=== PATIENT | female | born 1975 | race Two or more races ===

== ENCOUNTER 2020-06-09 06:32 | Day surgery (SDC) | payer OTHER | END 2020-06-09 10:55 | disposition home or self-care (01) | LOC: AMB-ENDOS 06:32 | PROVIDERS: ATTEND Internal Medicine Gastroenterology | DX: D13.1 Benign neoplasm of stomach (principal); K44.9 Diaphragmatic hernia without obstruction or gangrene; Z20.822 Contact with and (suspected) exposure to COVID-19 ==

== ENCOUNTER 2023-09-17 08:37 | Emergency (ER) | payer OTHER ==
[~2023-09-17] VITALS: Ht 162.6 cm; Wt 62.6 kg
[2023-09-17] MEDS ORDERED: GABAPENTIN300 M2 PO (08:49)
[2023-09-17] MEDS ORDERED: TIZANIDINE HCL4 MG PO (08:49)
[2023-09-17] MEDS ORDERED: NURTEC ODT75 MG PO (08:50)
[2023-09-17] MEDS ORDERED: NORFLEX100MG PO (08:50)
[2023-09-17] MEDS ORDERED: DICLOFENAC SODI25 MG PO (08:51)
[2023-09-17] MEDS ORDERED: KETOROLAC TROMETHAMINE 30 MG VIAL ONE (09:25)
[2023-09-17] MEDS ORDERED: KETOROLAC TROMETHAMINE 15 MG VIAL IV ONE (09:30)
[2023-09-17 09:48] LABS: HEMOGLOBIN 13.2 g/dL (12.0-15.00); MEAN CELL VOLUME 85.3 fL (80.00-100.00); MEAN CORPUSCULAR HEMOGLOBIN 28.8 pg (27.00-32.0); MEAN CORPUSCULAR HGB CONC 33.8 g/dl (32.0-36.0); PLATELET COUNT 300 K/uL (150-450); RED BLOOD COUNT 4.57 M/uL (4.00-6.00); RED CELL DISTRIBUTION WIDTH 14.3 % (11.5-14.5)
[2023-09-17 10:21] LABS: ALBUMIN 3.7 gm/dL (3.4-5.0); BILIRUBIN TOTAL 0.51 mg/dL (0.3-1.2); CALCIUM 8.8 mg/dL (8.5-10.1); CREATININE SERUM 0.8 mg/dL (0.55-1.02); GFR 76.24; GLOBULINA 3.3 G/DL (2.4-3.5); POTASSIUM 3.91 mEq/L (3.5-5.1)
[2023-09-17 11:03] LABS: PH,URINE 7.5 (5.0-8.0); URINE APPEARANCE Clear; URINE BILIRRUBIN Negative (NEGATIVE); URINE BLOOD Negative; URINE COLOR Yellow; URINE GLUCOSE Negative (NEGATIVE); URINE LEUKOCYTE Negative; URINE NITRATE Negative; URINE PROTEIN Negative (NEGATIVE); URINE UROBILINOGEN 0.2 E.U./dl
[2023-09-17 11:07] LABS: URINE BACTERIA 32.6 uL (0.0-1933); URINE EPITHELIAL CELLS 2.1 uL (0.0-38.8); URINE RBC 8.2 uL (0.0-20.8); URINE WBC 2.9 uL (0.0-23.2)
== END 2023-09-17 14:20 | disposition home or self-care (01) ==
LOC: ER 08:37
PROVIDERS: General Practice
DX: R10.31 Right lower quadrant pain (principal); D25.9 Leiomyoma of uterus, unspecified; Z88.2 Allergy status to sulfonamides; Z88.8 Allergy status to other drugs, medicaments and biological substances
CPT/HCPCS: 36415; 74177; 76830; 96365; 99284; J1885; Q9965

== ENCOUNTER 2024-03-27 05:40 | Day surgery (SDC) | payer OTHER ==
[2024-03-23 10:54] LABS: HEMATOCRIT 37.6 % (36.0-45.00); HEMOGLOBIN 12.5 g/dL (12.0-15.00); MEAN CELL VOLUME 86.5 fL (80.00-100.00); MEAN CORPUSCULAR HEMOGLOBIN 28.7 pg (27.00-32.0); MEAN CORPUSCULAR HGB CONC 33.2 g/dl (32.0-36.0); PLATELET COUNT 298 K/uL (150-450); RED BLOOD COUNT 4.34 M/uL (4.00-6.00); RED CELL DISTRIBUTION WIDTH 14.4 % (11.5-14.5)
[2024-03-23 11:24] VITALS: BP 117/75
[2024-03-23 11:28] LABS: INR < 0.93; PARTIAL THROMBOPLASTIN TIME 31.4 SECONDS (22.0-34.0); PROTHROMBIN TIME 10.2 SECONDS (9.0-11.5)
[2024-03-23 12:26] LABS: BILIRUBIN TOTAL 0.62 mg/dL (0.3-1.2); CALCIUM 9.2 mg/dL (8.5-10.1); CREATININE SERUM 0.77 mg/dL (0.55-1.02); GFR 79.35; GLOBULINA 3.3 G/DL (2.4-3.5); POTASSIUM 4.1 mEq/L (3.5-5.1); TOTAL PROTEIN 7.3 gm/dL (6.4-8.2)
[~2024-03-27] VITALS: Ht 162.6 cm; Wt 66.2 kg
[~2024-03-27 05:40] MED LIST: DICLOFENAC SODI25 MG PO; GABAPENTIN300 M2 PO; NORFLEX100MG PO; NURTEC ODT75 MG PO; TIZANIDINE HCL4 MG PO; VISTARIL50 MG/ML PO
[2024-03-27] MEDS ORDERED: POVIDONE-IODINE 118 ML BOTT TOP ONE (07:25)
[2024-03-27] MEDS ORDERED: KETOROLAC TROMETHAMINE 30 MG VIAL IV ONE (08:30)
[2024-03-27] MEDS ORDERED: MORPHINE SULFATE 4 MG/ML VIAL IV ONE (08:45)
[2024-03-27] MEDS ORDERED: KETOROLAC TROMETHAMINE 30 MG VIAL ONE (09:07)
== END 2024-03-27 10:40 | disposition home or self-care (01) ==
LOC: CIR.AMB 05:40
PROVIDERS: ATTEND Student in an Organized Health Care Education/Training Program
DX: N95.0 Postmenopausal bleeding (principal); Z88.1 Allergy status to other antibiotic agents; Z88.2 Allergy status to sulfonamides; J44.9 Chronic obstructive pulmonary disease, unspecified; J32.9 Chronic sinusitis, unspecified; K21.9 Gastro-esophageal reflux disease without esophagitis

== ENCOUNTER 2024-04-13 08:00 | Day surgery (SDC) | payer OTHER ==
[2024-04-13] MEDS ORDERED: DIPHENHYDRAMINE HCL 50 MG/ML VIAL 1ML IV ONE (11:45)
[2024-04-13] MEDS ORDERED: fentaNYL CITRATE 50 MCG/ML AMPUL IV ONE (11:45)
[2024-04-13] MEDS ORDERED: MIDAZOLAM HCL 2 MG/2 ML VIAL IV ONE (11:45)
== END 2024-04-13 13:20 | disposition home or self-care (01) ==
LOC: AMB-ENDOS 08:00
PROVIDERS: ATTEND Surgery
DX: D12.5 Benign neoplasm of sigmoid colon (principal); K62.5 Hemorrhage of anus and rectum; K62.89 Other specified diseases of anus and rectum; R19.4 Change in bowel habit; Z88.6 Allergy status to analgesic agent; Z88.2 Allergy status to sulfonamides

== ENCOUNTER 2024-04-16 08:00 | Emergency (ER) | payer OTHER ==
[~2024-04-16] VITALS: Ht 162.6 cm; Wt 63.5 kg
[2024-04-16] MEDS ORDERED: 0.9 % SODIUM CHLORIDE 1,000 ML IV STA (08:35)
[2024-04-16 09:15] LABS: URINE APPEARANCE Clear; URINE BILIRRUBIN Negative (NEGATIVE); URINE BLOOD Large; URINE COLOR Yellow; URINE GLUCOSE Negative (NEGATIVE); URINE KETONE Negative (NEGATIVE); URINE LEUKOCYTE Trace; URINE NITRATE Negative; URINE PROTEIN Negative (NEGATIVE); URINE UROBILINOGEN 0.2 E.U./dl
[2024-04-16 09:20] LABS: URINE BACTERIA 6214.2 uL (0.0-1933); URINE EPITHELIAL CELLS 34.1 uL (0.0-38.8); URINE RBC 32.5 uL (0.0-20.8); URINE WBC 43.2 uL (0.0-23.2)
[2024-04-16 09:40] LABS: HEMATOCRIT 37.5 % (36.0-45.00); HEMOGLOBIN 12.7 g/dL (12.0-15.00); MEAN CELL VOLUME 86.2 fL (80.00-100.00); MEAN CORPUSCULAR HEMOGLOBIN 29.1 pg (27.00-32.0); MEAN CORPUSCULAR HGB CONC 33.8 g/dl (32.0-36.0); PLATELET COUNT 299 K/uL (150-450); RED BLOOD COUNT 4.35 M/uL (4.00-6.00); RED CELL DISTRIBUTION WIDTH 14.6 % (11.5-14.5)
[2024-04-16 11:03] LABS: CREATININE SERUM 0.62 mg/dL (0.55-1.02); GFR 101.89; POTASSIUM 4.22 mEq/L (3.5-5.1)
== END 2024-04-16 14:16 | disposition home or self-care (01) ==
LOC: ER 08:03
PROVIDERS: Emergency Medicine
DX: N93.8 Other specified abnormal uterine and vaginal bleeding (principal); N80.8 Other endometriosis; Z88.2 Allergy status to sulfonamides; Z88.8 Allergy status to other drugs, medicaments and biological substances
CPT/HCPCS: 36415; 96365; 96366; 99282; J7030

== ENCOUNTER 2024-08-17 07:15 | Inpatient (IN) | payer OTHER ==
[~2024-08-17] VITALS: Ht 162.6 cm; Wt 66.2 kg
[2024-08-17 11:39] VITALS: BP 123/87
[2024-08-17] MEDS ORDERED: MAXALT10 MG (11:44)
[2024-08-17] MEDS ORDERED: CATAFLAM (11:45)
[2024-08-17] MEDS ORDERED: TORADOL (11:46)
[2024-08-17] MEDS ORDERED: NORFLEX (11:46)
[2024-08-17] MEDS ORDERED: TRAMADOL (11:46)
[2024-08-17] MEDS ORDERED: PLAQUENIL (11:47)
[2024-08-17 12:15] LABS: BASO % 1.2 % (0.1-1.2); EOS # 0.05 (0.04-0.54); EOS % 0.4 % (0.7-7.0); LYMPH # 2.78 (1.18-3.74); LYMPH % 24.1 % (19.3-53.1); MEAN PLATELET VOLUME 8.70 fl (9.4-12.4); MONO # 0.50 (0.24-0.82); MONO % 4.3 % (4.7-12.5); NEUT # 8.02 (1.56-6.13); NEUT % 69.7 % (34.0-71.1); RED CELL DISTRIBUTION WIDTH 14.8 % (11.6-14.4)
[2024-08-17 12:33] LABS: INR 0.95
[2024-08-17 13:24] LABS: RH POSITIVE
[2024-08-21] MEDS ORDERED: CEFAZOLIN SODIUM 1,000 MG VIAL IV ONE (12:45)
[2024-08-21] MEDS ORDERED: METRONIDAZOLE/SODIUM CHLORIDE 500 MG/100 ML PIGGYBACK IV ONE (12:45)
[2024-08-21] MEDS ORDERED: HEPARIN SODIUM,PORCINE 5,000 UNITS/ML VIAL SUBCUTANEO ONE (12:45)
[2024-08-21] MEDS ORDERED: POVIDONE-IODINE 118 ML BOTT TOP ONE (12:45)
[2024-08-21] MEDS ORDERED: RINGERS SOLUTION,LACTATED 1,000 ML IV SCH (15:00)
[2024-08-21] MEDS ORDERED: MORPHINE SULFATE 4 MG/ML VIAL IV ONE (15:05)
[2024-08-21] MEDS ORDERED: SUGAMMADEX SODIUM 200 MG/2 ML VIAL IV ONE (15:15)
[2024-08-21] MEDS ORDERED: VISTASEAL DUAL APPICATOR 1 EACH APPL TOP ONE (15:15)
[2024-08-21] MEDS ORDERED: THROMBIN,HU/FIBRINOGEN/CALCIUM 10 ML SYRINGE TOP ONE (15:15)
[2024-08-21] MEDS ORDERED: GABAPENTIN 300 MG CAPSULE PO SCH (17:00)
[2024-08-21 17:36] VITALS: BP 114/69
[2024-08-21] MEDS ORDERED: KETOROLAC TROMETHAMINE 30 MG VIAL IV SCH (18:00)
[2024-08-21] MEDS ORDERED: ACETAMINOPHEN 500 MG GEL..CAP PO SCH (18:00)
[2024-08-21] MEDS ORDERED: ONDANSETRON HCL 2 MG/ML VIAL IV PRN (21:15)
[2024-08-21 23:44] VITALS: BP 96/61
[2024-08-22 04:00] VITALS: BP 103/67
[2024-08-22 06:42] LABS: BASO % 0.8 % (0.1-1.2); EOS # 0.09 (0.04-0.54); EOS % 0.8 % (0.7-7.0); LYMPH # 3.41 (1.18-3.74); LYMPH % 28.7 % (19.3-53.1); MEAN PLATELET VOLUME 9.20 fl (9.4-12.4); MONO # 0.38 (0.24-0.82); MONO % 3.2 % (4.7-12.5); NEUT # 7.86 (1.56-6.13); NEUT % 66.2 % (34.0-71.1); RED CELL DISTRIBUTION WIDTH 14.6 % (11.6-14.4)
[2024-08-22 08:27] VITALS: BP 111/71
== END 2024-08-22 14:20 | disposition home or self-care (01) | DRG 743 ==
LOC: O/R 08-21 06:00 → OB/GYN 08-21 07:15
PROVIDERS: ADMIT Student in an Organized Health Care Education/Training Program; ATTEND Student in an Organized Health Care Education/Training Program
PROC: 0UT64ZZ Resection of Left Fallopian Tube, Percutaneous Endoscopic Approach (ICD-10-PCS; 2024-08-21)
PROC: 0UT14ZZ Resection of Left Ovary, Percutaneous Endoscopic Approach (ICD-10-PCS; 2024-08-21)
PROC: 0TNB4ZZ Release Bladder, Percutaneous Endoscopic Approach (ICD-10-PCS; 2024-08-21)
PROC: 8E0W4CZ Robotic Assisted Procedure of Trunk Region, Percutaneous Endoscopic Approach (ICD-10-PCS; 2024-08-21)
PROC: 0TJB8ZZ Inspection of Bladder, Via Natural or Artificial Opening Endoscopic (ICD-10-PCS; 2024-08-21)
PROC: 0UT94ZZ Resection of Uterus, Percutaneous Endoscopic Approach (ICD-10-PCS; principal; 2024-08-21 17:00)
DX: D25.1 Intramural leiomyoma of uterus (principal); N80.03 Adenomyosis of the uterus; R10.2 Pelvic and perineal pain; N95.0 Postmenopausal bleeding; Z90.710 Acquired absence of both cervix and uterus
CPT/HCPCS: 58571; 52000; S2900

== ENCOUNTER 2024-09-27 08:00 | Day surgery (SDC) | payer OTHER ==
[~2024-09-27 08:00] MED LIST changes: +CATAFLAM; +MAXALT10 MG; +NORFLEX; +PLAQUENIL; +TORADOL; +TRAMADOL
[2024-09-27] MEDS ORDERED: DIPHENHYDRAMINE HCL 50 MG/ML VIAL 1ML IV ONE ×2 (11:15)
[2024-09-27] MEDS ORDERED: MIDAZOLAM HCL 2 MG/2 ML VIAL IV ONE (11:15)
[2024-09-27] MEDS ORDERED: fentaNYL CITRATE 50 MCG/ML AMPUL IV PUSH ONE (11:15)
== END 2024-09-27 13:00 | disposition home or self-care (01) ==
LOC: AMB-ENDOS 08:00
PROVIDERS: ATTEND Internal Medicine
DX: K92.0 Hematemesis (principal); K29.60 Other gastritis without bleeding; K25.9 Gastric ulcer, unspecified as acute or chronic, without hemorrhage or perforation; Z88.2 Allergy status to sulfonamides; Z88.8 Allergy status to other drugs, medicaments and biological substances; K21.9 Gastro-esophageal reflux disease without esophagitis